=== PATIENT | male | born 1995 | race Caucasian/White ===

== ENCOUNTER 2016-10-26 14:38 | Emergency (ER) | payer SELFPAY ==
[~2016-10-26] VITALS: Ht 165.1 cm; Wt 66.5 kg
[2016-10-26 14:52] VITALS: TEMP 36.8; Ht 165.1 cm; Wt 66.5 kg
[2016-10-26] MEDS ORDERED: ACETAMINOPHEN 500 MG TAB PO STA (15:11)
--- NOTE | 2016-10-26 15:36 | DIAGNOSTIC IMAGING REPORT ---
CT SCAN OF THE BRAIN WITHOUT IV CONTRAST CLINICAL HISTORY: Head injury several days ago. Headache and memory loss. COMPARISON STUDY: No priors. TECHNIQUE: Unenhanced axial CT scan of the brain is performed from the vertex to the skull base. Automated dose control exposure was utilized. A dose lowering technique was utilized adhering to the principles of ALARA. CT DOSE: 638.56 mGycm FINDINGS: Brain parenchyma: The brain parenchyma is normal in appearance. There is no hemorrhage, mass effect, or evidence of acute territorial ischemia by CT criteria. Chau-white matter is preserved. No extra-axial fluid collection is seen. Ventricles, sulci, cisterns: Normal in configuration. Intracranial vasculature: The visualized intracranial vasculature at the skull base is normal in appearance. Calvarium: There is no depressed calvarial fracture. Sinuses and mastoids: Trace mucosal thickening is seen within the right maxillary antrum and the sphenoid sinuses. The remaining visualized paranasal sinuses are clear. The mastoid air cells are well pneumatized. Orbits: The bony orbits are grossly intact. IMPRESSION: No acute intracranial abnormality. Electronically signed by: Volodymyr Reddy M.D. 10/26/2016 3:34 PM Dictated Date/Time: 10/26/2016 3:32 PM
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
[2016-10-26 16:28] VITALS: BP 120/60; PULSE 67; O2SAT 98
== END 2016-10-26 16:28 | disposition home or self-care (01) ==
LOC: C.EDB 14:50 → C.EDD 16:28
DX: S06.0X0A Concussion without loss of consciousness, initial encounter (principal); V17.0XXA Pedal cycle driver injured in collision with fixed or stationary object in nontraffic accident, initial encounter; Y93.55 Activity, bike riding; Y99.8 Other external cause status; Z98.890 Other specified postprocedural states